=== PATIENT | female | born 1950 | race Caucasian/White ===

== ENCOUNTER → 2020-08-02 10:27 | Outpatient (CLI) | payer MEDICARE, SELFPAY ==
--- NOTE | ~2020-08-02 | MM_ITS ---
EXAMINATION: MM screening [facility] BI [facility] HISTORY: Screening mammogram TECHNIQUE: Craniocaudal and mediolateral oblique 3-D tomosynthesis images were obtained and synthetic 2-D images were generated. CAD analysis was submitted and interpreted. COMPARISON: 05/01/2019, 02/26/2018, 02/01/2017 BREAST PARENCHYMAL COMPOSITION: There are scattered areas of fibroglandular density. FINDINGS: There is no evidence of suspicious mass, calcification, or architectural distortion to sugg est malignancy in either breast. There has been no suspicious interval change. IMPRESSION: 1. No mammographic evidence of malignancy. 2. Recommend routine screening mammography in one year. BI-RADS Category 1: Negative Reviewed, dictated and finalized at location A.
== END ==
PROVIDERS: Visit Provider Obstetrics & Gynecology
DX: Z12.31 Encounter for screening mammogram for malignant neoplasm of breast (principal)
CPT/HCPCS: 77063; 77067

== ENCOUNTER 2020-08-07 13:13 | Emergency (ER) | payer MEDICARE, SELFPAY ==
[2020-08-07] VITALS (7 sets, daily range): BP systolic 123–156; BP diastolic 64–95; PULSE 59–76; RESP 15–20; TEMP 36.1; O2SAT 96–100
--- NOTE | 2020-08-07 13:28 | ECG_ITS ---
Measurements Intervals [place] Rate: 71 P: 69 [place]: 150 QRS: 57 QRSD: 82 T: 48 QT: 367 QTc: 399 Interpretive Statements SINUS RHYTHM NORMAL ECG Electronically Signed On 08-07-2020 13:58:26 CDT by Sb Arreola D.O.
[2020-08-07 13:56] LABS: Basophils Absolute Auto 0.1 K/mm3 (0.0-0.1); Eosinophils Absolute Auto 0.1 K/mm3 (0-0.3); Hematocrit 47.6 % (37.0-47.0); Hemoglobin 15.7 g/dL (12.0-15.0); Immature Granulocyte Absolute 0.03 K/mm3 (0.00-0.031); Immature Granulocyte Percent A 0.5 % (0-0.5); Lymphocytes Absolute Auto 2.18 K/mm3 (0.9-3.2); Mean Corpuscular Hemoglobin 31.9 pg (26-34); Mean Corpuscular Volume 96.7 fl (80-100); Mean Platelet Volume 10.3 fl (7.4-10.4); Monocytes Absolute Auto 0.5 K/mm3 (0.1-0.6); Monocytes Percent Auto 7.4 % (2.6-8.5); Neutrophils Absolute Auto 3.3 K/mm3 (1.3-6.7); Neutrophils Percent Auto 54.1 % (45.5-73.1); Platelet Count Result 240 k/mm3 (150-375); Red Blood Count 4.92 M/mm3 (4.2-5.4); White Blood Count 6.1 K/mm3 (4.5-10.0)
[2020-08-07 14:04] LABS: Anion Gap 9 mmol/L (8-16); Blood Urea Nitrogen 14 mg/dL (7-17); Calcium 9.7 mg/dL (8.4-10.2); Carbon Dioxide 25 mmol/L (22-30); Chloride 103 mmol/L (98-107); Estimated CRCL calculation 38 ml/min; Estimated Glomerular Filt Rate 44; Glucose 164 mg/dL (65-105); Sodium 137 mmol/L (137-145)
[2020-08-07] MEDS: MECLIZINE HCL 25 MG TABLET PO (14:12)
[2020-08-07] MEDS: SODIUM CHLORIDE 0.9% IV 1,000 ML 999 ML IV CONT (14:12)
--- NOTE | 2020-08-07 15:14 | ED.DIZZY ---
HPI - Dizziness General Chief Complaint: Dizziness Stated Complaint: light headed Time Seen by Provider: 08/07/20 13:28 History of Present Illness HPI Narrative: Patient is a 69-year-old female who presents ER with dizziness. Woke up in the middle of the night with some dizziness and then when she got up this morning she is very dizzy. [place] like everything is moving associated with nausea. Patient reports she has been taking a new medication to help with weight loss. She had just increase the dosage last night. Reports she is had nausea over the last couple weeks and the medicine she is taking is causing early satiety which is designed to do. No fevers or chills or sweats. She reports chronic sinus congestion for which she takes Sho and has been taking Sudafed. No focal weakness or numbness in arm or leg. No slurred speech. Is worse with movement and bending over. Related Data Home Medications Medication Instructions Recorded Confirmed aclidinium bromide 400 1 inh INHALATION BID 07/12/20 mcg/actuation breath activated powder inhaler atorvastatin 20 mg tablet 20 mg PO DAILY 07/12/20 betamethasone dipropionate 0.05 % 1 applic TOPICAL DAILY 07/12/20 lotion fexofenadine 60 mg tablet 60 mg PO Q12H 07/12/20 glimepiride 2 mg tablet 2 mg PO QAM 07/12/20 losartan 50 mg tablet 50 mg PO DAILY 07/12/20 semaglutide 0.25 mg SUBCUT WEEKLY 07/12/20 triamcinolone acetonide 0.1 % 1 applic TOPICAL BID 07/12/20 topical cream Allergies Allergy/AdvReac Type Severity Reaction Status Date / Time erythromycin base AdvReac Intermediate stomach Verified 08/07/20 15:12 cramps metformin AdvReac Diarrhea Verified 08/07/20 15:12 Review of Systems Review of Systems: All systems reviewed & are unremarkable except as noted in HPI and below Constitutional: Constitutional: Denies chills, Denies fever(s) and Denies weakness ENT: Reports dizziness and Denies nasal congestion Cardiovascular: Cardiovascular: Denies chest pain and Denies radiating jaw, neck or arm pain Gastrointestinal: Gastrointestinal: Reports nausea and Denies vomiting Neurologic: Reports dizziness, Denies headache(s), Denies focal weakness and Denies numbness PMF Past Medical History Medical History Asthma Colitis Degenerative disc disease Diabetes mellitus Hypercholesteremia Hypertension 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 HEAD: Normocephalic, atraumatic. EYES: PERRL and EOMI. ENT: Mucous membranes moist. TMs normal bilaterally. Ear canals free of cerumen. CHEST: Clear to auscultation. No respiratory distress. HEART: Regular rate and rhythm. Normal peripheral pulses. ABDOMEN: Soft, nontender, nondistended EXTREMITIES: Normal range of motion. No edema. SKIN: Warm, dry, no rash. NEURO: No focal deficits. No upper or lower extremity drift. Ambulates with steady gait. Cranial nerves II through XII intact. Alert and oriented x3. Course Course Emergency Course: Relates well. Dizziness improved since receiving IV fluid and meclizine. Feel dizziness is vertiginous and will be given meclizine for home. Vital Signs Vital signs: Vi
== END 2020-08-07 15:36 | disposition home or self-care (01) ==
PROVIDERS: Emergency Provider Emergency Medicine; PCP Obstetrics & Gynecology
DX: R42 Dizziness and giddiness (principal); J45.909 Unspecified asthma, uncomplicated; E78.00 Pure hypercholesterolemia, unspecified; I10 Essential (primary) hypertension
CPT/HCPCS: 36415; 80048; 85025; 93005; 96360; 99283; A9270; J7030

== ENCOUNTER → 2021-12-05 14:08 | Outpatient (CLI) | payer MEDICARE, SELFPAY ==
--- NOTE | ~2021-12-05 | MM_ITS ---
EXAMINATION: MM screening [facility] HISTORY: Screening TECHNIQUE: Craniocaudal and mediolateral oblique 3-D tomosynthesis images were obtained and synthetic 2-D images were generated. CAD analysis was submitted and interpreted. COMPARISON: Comparison to multiple prior studies sequentially, with oldest reviewed study dated 08/2014. BREAST PARENCHYMAL COMPOSITION: The breasts are almost entirely fatty. FINDINGS: There is no evidence of suspicious mass, calcification, or architectural distortion to sugg est malignancy in either breast. There has been no suspicious interval change. IMPRESSION: 1. No mammographic evidence of malignancy. 2. Recommend routine screening mammography in one year. BI-RADS Category 1: Negative Reviewed, dictated and finalized at location A.
== END ==
DX: Z12.31 Encounter for screening mammogram for malignant neoplasm of breast (principal)
CPT/HCPCS: 77063; 77067

== ENCOUNTER → 2022-01-03 13:17 | Outpatient (CLI) | payer MEDICARE, SELFPAY ==
--- NOTE | ~2022-01-03 | DEXA_ITS ---
Bone Density Report Name: EMIL ENRIQUE Age: 71 Sex: Female Ethnicity: White Date of : 1950 Indication: postmenopausal; screening for osteoporosis; Referring Provider: Karen CARPENTER Study: Bone densitometry was performed. Exam Date: January 03, 2022 Accession number: [id number] Bone Density: Region BMD T-score Z-score Classification AP Spine (L1-L4) 0.889 -1.4 0.8 Osteopenia Femoral Neck (Left) 0.674 -1.6 0.3 Osteopenia Total Hip (Left) 0.842 -0.8 0.8 Normal Femoral Neck (Right) 0.669 -1.6 0.3 Osteopenia Total Hip (Right) 0.798 -1.2 0.4 Osteopenia Total Hip Mean 0.820 -1.0 0.6 Normal World Health Organization criteria for BMD impression classify patients as: Normal (T-score at or above -1.0), Osteopenia (T-score between -1.0 and -2.5), or Osteoporosis (T-score at or below -2.5). 10-year Fracture Risk(1): Major Osteoporotic Fracture 10% Hip Fracture 1.7% Reported Risk Factors: [place] (), Neck BMD=0.669, BMI=33.6 (1) FRAX(R) Version 3.08. Fracture probability calculated for an untreated patient. Fracture probability may be lower if the patient has received treatment. Previous Exams: Region Exam Age BMD T-score BMD Change BMD Change Date g/cm2 vs Baseline vs Previous AP Spine(L1-L4) 01/03/2022 71 0.889 -1.4 -0.119 -0.075 09/04/2012 61 0.964 -0.8 -0.044* -0.035* 06/03/2010 59 0.999 -0.4 -0.009 0.070* 05/18/2008 57 0.928 -1.1 -0.080* -0.080* 02/02/2006 55 1.008 -0.4 Total Hip(Left) 01/03/2022 71 0.842 -0.8 -0.224 -0.126 09/04/2012 61 0.968 0.2 -0.097* 0.039* 06/03/2010 59 0.929 -0.1 -0.137* -0.006 05/18/2008 57 0.935 -0.1 -0.131* -0.131* 02/02/2006 55 1.065 1.0 Total Hip(Right) 01/03/2022 71 0.798 -1.2 -0.212 -0.107 09/04/2012 61 0.905 -0.3 -0.105* -0.029* 06/03/2010 59 0.934 -0.1 -0.076* 0.026 05/18/2008 57 0.908 -0.3 -0.102* -0.102* 02/02/2006 55 1.010 0.6 *Denotes significance at 95% confidence level, LSC for AP Spine = 0.022 g/cm2, LSC for Total Hip = 0.027 g/cm2 Clinical Information Provided by Patient: Patient maximum height was 62.5 Menopause Age: 52 Drinks caffeinated beverages Onset of menses at age 11 Number of children 0
== END ==
DX: Z78.0 Asymptomatic menopausal state (principal); M85.88 Other specified disorders of bone density and structure, other site; M85.851 Other specified disorders of bone density and structure, right thigh; M85.852 Other specified disorders of bone density and structure, left thigh
CPT/HCPCS: 77080